=== PATIENT | female | born 1965 | race Caucasian/White ===

== ENCOUNTER 2025-02-20 09:59 | Outpatient (AMB) | payer BC, SELFPAY ==
--- OUTSIDE RECORDS SUMMARY | 2025-02-20 12:02 | XMS_ITS | Encounter Summary ---
Author Organization [facility] Address [address] [place] [address] Care Team Providers Care Claims Director Name Role Phone Pcp, No Primary Care Provider Unavailabl e Encounter Details Date Type Department Care Team (Late st Contact Info) Description 02/25/2024 Scanned Document [address] [facility] [place] [address] Provider, Generic Social History Tobacco Use Types Packs/Day Years Used Date Smoking Tobacco: Never Assessed Comments Unknown Sex and Gender Information Value Date Recorded Sex Assigned at Not on file Legal Sex Female 8:58 AM EDT Gender Identity Not on file Sexual Orientation Not on file documented as of this encounter Plan of Treatment Not on file documented as of this encounter Visit Diagnoses Not on filedocumented in this encounter Care Teams Claims Director Relationship Specialty Start Date End Date Pcp, No PCP - General General Medicine 02/25/24 documented as of this encounter
--- OUTSIDE RECORDS SUMMARY | 2025-02-20 12:02 | XMS_ITS | Clinical Summary ---
Author Organization [facility] Address [address] [place] [address] Care Team Providers Care Sausage Stringer Name Role Phone Pcp, No Primary Care Provider Unavailabl e Allergies Active Allergy Reactions Criticality Noted Date Comments Iohexol Rash/Dermatitis Low 02/25/2024 Diarrhea/Rash Polyethylene Glycol Swelling,Rash/Dermatitis Medium Sulfa Antibiotics Rash/Dermatitis Low 02/25/2024 Medications montelukast (SINGULAIR) 10 MG tablet 4 Active levocetirizine (XYZAL) 5 MG tablet 4 Active albuterol (PROVENTIL HFA; VENTOLIN HFA) 108 (90 Base) MCG/ACT inhaler Inhale 2 puffs 4 times daily (every 6 hours) as needed for wheezing. Active benzonatate (TESSALON) 200 MG capsuleIndicatio ns:Bacterial sinusitis Take 1 capsule (200 mg total) by mouth 3 (three) times a day as needed for cough. 20 capsule 4 Active permethrin (ELIMITE) 5 % creamIndications :Scabies Apply cream from head to toe; leave on for 8-14 hours before washing off with water; may repeat in 1 week if live mites appear 60 g 1 4 Active triamcinolone (KENALOG) 0.1 % ointmentIndicati ons:Scabies,Cont act dermatitis, unspecified contact dermatitis type, unspecified trigger Apply topically 2 (two) times a day. 80 g 4 Active Active Problems No known active problems Social History Tobacco Use Types Packs/Day Years Used Date Smoking Tobacco: Never Assessed Comments Unknown Sex and Gender Information Value Date Recorded Sex Assigned at Not on file Legal Sex Female 8:58 AM EDT Gender Identity Not on file Sexual Orientation Not on file Last Filed Vital Signs Vital Sign Reading Time Taken Comments Blood Pressure 146/83 03/30/2024 10:19 AM EDT Pulse 62 03/30/2024 10:19 AM EDT Temperature 36.7 C (98.1 F) 03/30/2024 10:19 AM EDT Respiratory Rate 18 03/30/2024 10:19 AM EDT Oxygen Saturation 100% 03/30/2024 10:19 AM EDT Inhaled Oxygen Concentration - - Weight - - Height - - Body Mass Index - - Plan of Treatment Health Maintenance Due Date Last Done Comments Hepatitis C Virus Screening 1963 HIV Screening 1976 DTaP/Tdap/Td Vaccines (1 - Tdap) 1982 Pap Smear (Ages 21-65) 1984 Mammogram 2003 Colonoscopy 2008 Pneumococcal Vaccines 50+ (1 of 1 - PCV) 2013 Zoster (Shingles) Vaccine (1 of 2) 2013 COVID-19 Vaccine (3 - season) 2024 10/03/2020, 09/12/2020 Influenza Vaccine 01/11/2025 05/11/2022, , 04/13/2020, Additional history exists RSV Vaccine 60 years and older and Patients (1 - 1-dose 75+ series) 2038 Hepatitis B Vaccines Aged Out No long er eligible based on patient's age to complete this topic Insurance [facility] PREFERRED Care Teams Sausage Stringer Relationship Specialty Start Date End Date Pcp, No PCP - General General Medicine 02/25/24
--- OUTSIDE RECORDS SUMMARY | 2025-02-20 12:02 | XMS_ITS | Encounter Summary ---
Author Organization [facility] Address [address] [place] [id number] Care Team Providers Care Ceiling Installer Name Role Phone Pcp, No Primary Care Provider Unavailabl e Encounter Details Date Type Department Care Team (Late st Contact Info) Description 02/25/2024 Scanned Document [address] [facility] [place] [address] Provider, Generic Social History Tobacco [...] on filedocumented in this encounter Care Teams Ceiling Installer Relationship Specialty Start Date End Date Pcp, No PCP - General General Medicine 02/25/24 documented as of this encounter
--- OUTSIDE RECORDS SUMMARY | 2025-02-20 12:02 | XMS_ITS ---
[facility] Name [facility] History of Medication Use Medication Directions Dispensed Refills Start Date End Date Stat us ivermectin (STROMECTOL) 3 MG Tab tablet Take 5.5 tablets (16,500 mcg total, 200 mcg/kg x 86.2 kg (Order-specific weight)) by mouth once. On an empty stomach. Repeat in 2 weeks 03/30/2024 2024 active montelukast (SINGULAIR) 10 MG tablet 12/28/2023 active albuterol (PROVENTIL HFA; VENTOLIN HFA) 108 (90 Base) MCG/ACT inhaler Inhale 2 puffs 4 times daily (every 6 hours) as needed for wheezing. active Allergies Allergen Reaction Severity Comment Documented Date Source Statu s SULFA ANTIBIOTICS RASH/DERMATITI S 02/25/2024 [facility] active IOHEXOL RASH/DERMATITI S Diarrhea/Rash [facility] POLYETHYLENE GLYCOL RASH/DERMATITI S [facility] Problems Problem Status Onset Date Problem Type Date of Resoluti on Source Contact dermatitis, unspecified contact dermatitis type, unspecified trigger active EncounterDiagnosisAct [facility] Scabies active EncounterDiagnosisAct [facility] Encounters Encounter Type Encounter Reason Primary Diagnosis Location Date Ambulatory Scabies Scabies [facility] 03/30/2024 Ambulatory Cough Cough [facility] 02/25/2024 Care Team Organization Name Specialty Phone Email Start Date End [facility] 04/27/2024 02/10/2025 [facility] [employer] Engineering Teacher 02/28/2024 08/29/2024 [facility] 02/25/2024 [facility] NO PCP Primary Care 02/25/2024
== END 2025-02-20 10:08 | disposition home or self-care (01) ==
PROVIDERS: PCP Internal Medicine; Visit Provider Registered Nurse Emergency
DX: J30.89 Other allergic rhinitis (principal)
CPT/HCPCS: 95117; 95165

== ENCOUNTER 2025-05-01 13:08 | Outpatient (AMB) | payer BC, SELFPAY ==
--- OUTSIDE RECORDS SUMMARY | 2025-05-02 01:01 | XMS_ITS | Encounter Summary ---
Author Organization [facility] Address [address] [place] [address] Care Team Providers Care Ceramic Maker Demonstrator Name Role Phone Pcp, No Primary Care Provider Unavailabl e Encounter Details Date Type Department Care Team (Late st Contact Info) Description 02/25/2024 Scanned Document [address] [facility] [place] [address] Provider, Generic Social History Tobacco [...] on filedocumented in this encounter Care Teams Ceramic Maker Demonstrator Relationship Specialty Start Date End Date Pcp, No PCP - General General Medicine 02/25/24 documented as of this encounter
--- OUTSIDE RECORDS SUMMARY | 2025-05-02 01:01 | XMS_ITS | Encounter Summary ---
Author Organization [facility] Address [address] [place] [address] Care Team Providers Care Pediatric Social Worker Name Role Phone Pcp, No Primary Care Provider Unavailabl e Encounter Details Date Type Department Care Team (Late st Contact Info) Description 02/25/2024 Scanned Document [address] [facility] [place] [address] Provider, Generic Social History Tobacco [...] on filedocumented in this encounter Care Teams Pediatric Social Worker Relationship Specialty Start Date End Date Pcp, No PCP - General General Medicine 02/25/24 documented as of this encounter
--- OUTSIDE RECORDS SUMMARY | 2025-05-02 01:02 | XMS_ITS | Clinical Summary ---
Author Organization [facility] Address [address] [place] [address] Care Team Providers Care Shactor Name Role Phone Pcp, No Primary Care Provider Unavailabl e Allergies Active Allergy Reactions Criticality Noted Date Comments Iohexol Rash/Dermatitis Low 02/25/2024 Diarrhea/Rash Polyethylene Glycol (Macrogol) Swelling,Rash/Dermati tis Medium 02/25/2024 Sulfa Antibiotics Rash/Dermatitis Low 02/25/2024 Medications montelukast [...] Zoster (Shingles) Vaccine (1 of 2) 2013 Influenza Vaccine 01/11/2025 05/11/2022, , 04/13/2020, Additional history exists COVID-19 Vaccine (3 - season) 2025 10/03/2020, 09/12/2020 RSV Vaccine 50 years and older and Patients (1 - 1-dose 75+ series) 2038 Hepatitis B Vaccines Aged Out No long er eligible based on patient's age to complete this topic Insurance [facility] PREFERRED Care Teams Shactor Relationship Specialty Start Date End Date Pcp, No PCP - General General Medicine 02/25/24
== END 2025-05-01 13:08 | disposition home or self-care (01) ==
LOC: HO.HMGAL 13:08
PROVIDERS: PCP Internal Medicine; Visit Provider Registered Nurse Emergency
DX: J30.89 Other allergic rhinitis (principal)
CPT/HCPCS: 95117; 95165

== ENCOUNTER 2025-06-03 10:20 | Outpatient (AMB) | payer BC, SELFPAY ==
--- OUTSIDE RECORDS SUMMARY | 2025-06-03 12:32 | XMS_ITS | Clinical Summary ---
Author Organization [facility] Address [address] [place] [address] Phone Care Team Providers Care Counter Cutter Name Role Phone Imelda Grajeda NP Primary Care Provider [phone] Allergies Active Allergy Reactions Criticality Noted Date Comments Sulfa (Sulfonamide Antibiotics) 01/11 Medications albuterol HFA (PROAIR HFA ; PROVENTIL HFA ; VENTOLIN HFA) 90 mcg/actuation inhaler INHALE 1 PUFF BY MOUTH ONCE A DAY NEEDED. Active betamethasone dipropionate (DIPROSONE) 0.05 % cream PLEASE SEE ATTACHED FOR DETAILED DIRECTIONS 5 Active dicyclomine (BENTYL) 10 mg capsule Take 1 capsule (10 mg total) by mouth. for 10 days 5 Active montelukast (SINGULAIR) 10 mg tablet Take 1 tablet (10 mg total) by mouth 1 (one) time each day. Active levocetirizine (XYZAL) 5 mg tablet Take 1 tablet (5 mg total) by mouth 1 (one) time each day. 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 Tubular adenoma of colon 01/28/2025 Uterine leiomyoma 01/28/2025 Vitamin D deficiency 01/28/2025 Surgical History Surgery Date Site/Laterality Comments COLONOSCOPY 04/13/2014 - 05/12/2014 COLONOSCOPY 07/07/2021 Social History Tobacco Use Types Packs/Day Years Used Date Smoking Tobacco: Never Smokeless Tobacco: Never Tobacco Cessation:Counseling Given: Not Answered Alcohol Use Standard Drinks/Week Comments Yes 0 (1 standard drink = 0.6 oz pur e alcohol) social Comments Unknown Sex and Gender Information Value Date Recorded Sex Assigned at Female 01/21/2025 2:30 PM EDT Legal Sex Female 8:07 PM EST Gender Identity Female 01/21/2025 2:30 PM EDT Sexual Orientation Not on file Last Filed Vital Signs Vital Sign Reading Time Taken Comments Blood Pressure - - Pulse - - Temperature - - Respiratory Rate - - Oxygen Saturation - - Inhaled Oxygen Concentration - - Weight 87.5 kg (193 lb) 01/29/2025 2:08 PM EDT Height 180.3 cm (5' 11 ) 01/29/2025 2:08 PM EDT Body Mass Index 26.92 01/29/2025 2:08 PM EDT Plan of Treatment Upcoming Encounters Date Type Department Care Team (Late st Contact Info) Description 01/15/2026 1:00 PM EDT Office Visit Gastroenterology - [address] [id number] Mariela Vanegas PA [address] [address] Health Maintenance Due Date Last Done Comments Breast Cancer Screening 1963 Pneumococcal Vaccine: 50+ Years (1 of 2 - PCV) 1982 Cervical Cancer Screening: Pap Smear 1984 RSV Immunization Adult Patients (1 - Risk 50-74 years 1-dose series) 2013 Zoster Vaccines (1 of 2) 2013 HIV Screening 05/15/2022 Hepatitis C Screening 05/15/2022 Social Influencers of Health Screening 05/15/2022 DTaP,Tdap,and Td Vaccines (2 - Td or Tdap) 11/27/2023 11/26/2013 Colorectal Cancer Screening: Colonoscopy 04/18/2024 04/18/2014 Depression Screening 06/13/2024 COVID-19 Vaccine ( season) 2025 10/03/2020, 09/12/2020 Influenza Vaccine (#1) 2025 4, 05/11/2022, 05/20/2021, Additional history exists HIB Vaccines Aged Out No longer eligi ble based on patient's age to complete this topic HPV Vaccines Aged Out No longer eligi ble based on patient's age to complete this topic Hepatitis A Vaccines Aged Out No long er eligible based on patient's age to complete this topic Hepatitis B Vaccines Aged Out No long er eligible based on patient's age to complete this topic IPV Vaccines Aged Out No longer eligi ble based on patient's age to complete this topic MMR Vaccines Aged Out No longer eligi ble based on patient's age to complete this topic Meningococcal ACWY Vaccine Aged Out N o longer eligible based on patient's age to complete this topic Meningococcal B Vaccine Aged Out No l onger eligible based on patient's age to complete this topic RSV Immunization Patients Under 20 months Aged Out No longer eligible based on patient's age to complete this topic Varicella Vaccines Aged Out No longer eligible based on patient's age to complete this topic Procedures Procedure Name Priority Date/Time Associated Diagnosis Comments COLONOSCOPY Routine 04/18/2014 3:19 PM EST from Last 3 Months or Most Recently Relevant to Health Maintenance Results * COLONOSCOPY (04/18/2014 3:19 PM EST) Anatomical Region Laterality Modality Endoscopy us Historical Provider GI~PROCEDURE ORDERABLES F inal Result from Last 3 Months or Most Recently Relevant to Health Maintenance Insurance [facility] Care Teams Counter Cutter Relationship Specialty Start Date End Date Imelda Grajeda NP [address] [place] [id number] PCP - General Nurse Practitioner 01/21/25
--- OUTSIDE RECORDS SUMMARY | 2025-06-03 12:32 | XMS_ITS | Encounter Summary ---
Author Organization [facility] Address [address] [place] [id number] Care Team Providers Care Director Of Acquisition Marketing Name Role Phone Pcp, No Primary Care Provider Unavailabl e Encounter Details Date Type Department Care Team (Late st Contact Info) Description 02/25/2024 Scanned Document [address] [facility] [place] [address] Provider, Generic Social History Tobacco [...] on filedocumented in this encounter Care Teams Director Of Acquisition Marketing Relationship Specialty Start Date End Date Pcp, No PCP - General General Medicine 02/25/24 documented as of this encounter
--- OUTSIDE RECORDS SUMMARY | 2025-06-03 12:32 | XMS_ITS | Encounter Summary ---
Author Organization [facility] Address [address] [place] [address] Care Team Providers Care Bundle Packer Name Role Phone Pcp, No Primary Care Provider Unavailabl e Encounter Details Date Type Department Care Team (Late st Contact Info) Description 02/25/2024 Scanned Document [address] [facility] [place] [address] Provider, Generic Social History Tobacco [...] on filedocumented in this encounter Care Teams Bundle Packer Relationship Specialty Start Date End Date Pcp, No PCP - General General Medicine 02/25/24 documented as of this encounter
--- OUTSIDE RECORDS SUMMARY | 2025-06-03 12:33 | XMS_ITS | Clinical Summary ---
Author Organization [facility] Address [address] [place] [address] Care Team Providers Care Sheep Farm Manager Name Role Phone Pcp, No Primary Care [...] patient's age to complete this topic Insurance [facility] PREFERRED Care Teams Sheep Farm Manager Relationship Specialty Start Date End Date Pcp, No PCP - General General Medicine 02/25/24
== END 2025-06-03 10:20 | disposition home or self-care (01) ==
LOC: HO.HMGAL 10:20
PROVIDERS: PCP Internal Medicine; Visit Provider Registered Nurse Emergency
DX: J30.89 Other allergic rhinitis (principal)
CPT/HCPCS: 95117; 95165